=== PATIENT | female | born 1990 | race American Indian/Alaskan Native ===

== ENCOUNTER 2017-03-04 10:33 | Observation (INO) | payer MEDICAID ==
[2017-02-28 13:05] VITALS: BMI 33.4
[2017-03-04] MEDS ORDERED: Bupivacaine 0.5% Inj(30mL) IJ ONE (11:10)
[2017-03-04] MEDS ORDERED: ceFAZolin 1 GM in Sodium Chloride 0.9% 100 ML IVPB ONE (11:10)
[2017-03-04] MEDS ORDERED: Sodium Chloride 0.9% 1,000 ML IV SCH (11:15)
--- NOTE | 2017-03-04 11:24 | CP.SDSHP ---
Same Day Surgery H & P - History Proposed Procedure: Left foot subtalar joint fusion Pre-Op Diagnosis: Subtalar joint arthritis of left foot - Previous Medical/Surgical History Pain: 6.Severe Pain - Allergies Allergies: Allergies FRUITS Allergy (Uncoded 03/04/17 10:54) ITCHING - Physical Exam Mental Status: Alert & Oriented x3 - {Optional Preform as Required} Integument: WNL Ortho: Other - Impression Pt. Evaluated Today:Candidate for Anesthesia & Procedure: Yes - Date & Time Date: 03/04/17 Time: 11:25 Short Stay Discharge - Short Stay Discharge Admitting Diagnosis/Reason for Visit: M19.072 Disposition: HOME/ ROUTINE Referrals: FAMILY PROVIDER,NO [Primary Care Provider] - Rohan Long DPM [Staff Provider] - Instructions: Crutch Instructions (DC), Arthrodesis (DC), RICE Therapy (GEN), Oxycodone/Acetaminophen (By mouth), Cephalexin (By mouth) Additional Instructions (Diet, Activity): follow up with primary md 7-10 days Progress Note/Discharge Note with Instructions: Please keep dressing clean, dry, & intact to surgical site, use plastic bag over bandage for showering, wear post op shoe at all times when ambulating, call clinic if you see signs of infection (redness, swelling, malodor), please make an appointment to see in office/clinic within 1 week for post-op check.
--- NOTE | 2017-03-04 11:28 | CP.PCM.PN ---
Subjective - Date & Time of Evaluation Date of Evaluation: 03/04/17 Time of Evaluation: 11:25 - Subjective Subjective: 26 year old female patient with no pertinent PMH seen in [facility] for pre-operative evaluation of left STJ fusion surgery with Dr. Long today. Patient states that she has been having a lot of pain to the area. She has exhausted conservative treatment and now opts for surgical intervention. NPO status was confirmed. Patient is NAD and AAO x 3. Patient states that her only allergy is to fruit. She has had previous foot surgeries in the past and denies any adverse affects to the anesthesia. Patient denies using any medications. She states that she smokes an average of two black and mild cigars a day and denies drug use or alcohol consumption. Denies recent N/V/F/C/CP/SOB Objective - Medications Medications: Current Medications Cefazolin Sodium 1 gm/ Sodium (Chloride) 100 mls @ 100 mls/hr IVPB ONCE ONE Stop: 03/04/17 12:09 Sodium Chloride (Sodium Chloride 0.9%) 1,000 mls @ 0 mls/hr IV .Q0M [facility] PRN Reason: As Directed Stop: 03/05/17 11:12 - Constitutional Appears: Well, Non-toxic, No Acute Distress - Extremities Exam Additional comments: LE focused exam: Vasc: DP/PT pulses fully palpable 2/4 b/l. Skin temperature warm to warm from proximal to distal. CFT < 3 seconds to digits 1-5 b/l. No edema noted b/l. Neuro: Epicritic and protective sensation grossly intact b/l Derm: No open lesions, wounds, maceration, xerosis, abnormal growths or abnormal pigmentation noted at this time MSK: POP with passive movement of left STJ. Limited ROM of left STJ - Neurological Exam Neurological Exam: Alert, Awake, Oriented x3 - Psychiatric Exam Psychiatric exam: Normal Affect, Normal Mood Assessment and Plan - Assessment and Plan (Free Text) Assessment: 26 year old female seen in [facility] preoperatively for left foot STJ fusion Plan: Pt was seen and examined in [facility] Pt NPO status was confirmed All Pre-op testing and clearance was in the chart Pt has exhausted all conservative treatment at this time and is opting for surgical intervention Pt was explained procedure and post-operative course All pt's questions were answered to satisfaction No guarantees were made Pt understands all risks, benefits and complications of procedure Pt will follow-up with Dr. Long post operatively
[2017-03-04] MEDS ORDERED: Lactated Ringer's 1,000 ML IV ONE ×2 (11:45→15:15)
[2017-03-04] MEDS ORDERED: Ropivacaine 0.5% 30ML IV ONE (12:45)
[2017-03-04] MEDS ORDERED: Midazolam 2 MG/2 ML VIAL ONE ×2 (12:46→13:04)
[2017-03-04] MEDS ORDERED: Propofol 10 mg/ml Inj (20 ML) ONE (13:04)
[2017-03-04] MEDS ORDERED: Succinylcholine 200 mg/10 ml Inj IV ONE (13:04)
[2017-03-04] MEDS ORDERED: Rocuronium 10 mg/ml (5 ml) ONE ×2 (13:04→13:43)
[2017-03-04] MEDS ORDERED: Neostigmine Methylsulfate 3mg/3ml Syringe IV ONE (13:05)
[2017-03-04] MEDS ORDERED: Bupivacaine 0.5% 50 ML IJ ONE ×2 (13:30)
[2017-03-04] MEDS ORDERED: Esmolol 100 mg/10ml Inj IV ONE (14:35)
[2017-03-04] MEDS ORDERED: Absorbable Gelatin Sponge Size 12-7 TP ONE (15:00)
--- NOTE | 2017-03-04 16:37 | PCM.SURG1 ---
Surgeon's Initial Post Op Note - Surgeon's Notes Surgeon: Dr. Rohan Long, DPM Changer Fixer: Dr. Steven Curtis, PGY3, Dr. Luis Morales, PGY3, Dr. Carmen Chopra, PGY1 Type of Anesthesia: General Endo Anesthesia Administered By: Dr. Fajardo Pre-Operative Diagnosis: Painful left foot Subtalar joint arthritis Operative Findings: See dictation. M- 4-0 vicryl, 4-0 nylon, ceramet bone filler, 65. cannulated screw 70mm x 1, 6.5 mm cannulated screw 75mm x 1, DBM. I - 30 cc 0.5% marcaine plain Post-Operative Diagnosis: Same Operation Performed: Left foot subtalar joint arthrodesis with internal fixation with harvesting of autologous bone graft from distal tibia and bone graft filler application Specimen/Specimens Removed: Demineralized bone of left subtalar joint Estimated Blood Loss: EBL {In ML}: 10 Blood Products Given: N/A Drains Used: No Drains Post-Op Condition: Good Date of Surgery/Procedure: 03/04/17 Time of Surgery/Procedure: 16:40
[2017-03-04] MEDS ORDERED: Oxycodone/Acetaminophen 5/325 mg Tab PO PRN ×2 (16:41)
[2017-03-04] MEDS ORDERED: DiphenhydrAMINE 50 mg/ml Inj IVP PRN (16:46)
[2017-03-04] MEDS: HYDROmorphone 0.5 mg/0.5 ml ISec IVP PRN ×4 (17:25→18:19)
--- NOTE | 2017-03-04 18:32 | RAD ---
PROCEDURE: Left Foot Radiographs. HISTORY: s/p left foot surgery COMPARISON: CT examination of the left ankle and foot 08/27/2016 FINDINGS: BONES: Patient ostomy status post tibiotalar arthrodesis by 2 compression screws an apparent probable autologous bone grafting. Heterogeneous per family lucent changes at the distal tibia may reflect bone graft donor site. Cast obscures fine bony and soft-tissue detail however no definite fracture subluxation or dislocation is appreciated. JOINTS: As above. SOFT TISSUES: Limited postop changes are identified. OTHER FINDINGS: None. IMPRESSION: Status post left talocalcaneal arthrodesis by 2 compression screws and bone graft material as discussed above.
[2017-03-04] MEDS: Lactated Ringer's 1,000 ML IV SCH (20:10)
[2017-03-04] MEDS ORDERED: HYDROmorphone 0.5 mg/0.5 ml ISec IVP ONE (22:15)
[2017-03-05] MEDS: Lactated Ringer's 1,000 ML IV SCH (03:35)
[2017-03-05 08:28] VITALS: BP 96/64; PULSE 91; RESP 18; TEMP 98.1; O2SAT 96
[2017-03-05] MEDS ORDERED: Lidocaine 2% Inj (20ml) ONE (08:35)
[2017-03-05] MEDS ORDERED: Ropivacaine 0.5% 30ML IV ONE (08:35)
--- NOTE | 2017-03-05 09:17 | OP ---
PROCEDURE DATE: 03/04/2017 On behalf of Rohan Long DPM. SURGEON: Dr. Rohan Long DPM. TRIMMER HAND: Steven Curtis, PGY3, Luis Morales, PGY3, and Carmen Chopra, PGY1. AIR ANALYSIS TECHNICIAN: Dr. Fajardo. ANESTHESIA: General LMA and local. PREOPERATIVE DIAGNOSIS: Left foot subtalar joint pain with arthritis. POSTOPERATIVE DIAGNOSIS: Left foot subtalar joint pain with arthritis. PROCEDURE: 1. Left foot subtalar joint arthrodesis. 2. Harvesting autologous bone from distal tibia, left lower extremity. INDICATIONS: The patient is a 26-year-old female with above diagnosis. Patient had a left foot STJ arthroereisis surgery in the past and removed the implant after couple of years. Since then, patient has been having left foot pain. Patient has exhausted conservative treatments at this time and now requested surgical intervention. The patient signed the consent after careful explanation of the risks, benefits, complications, and alternatives for surgical procedure, no guarantees were given nor implied, 2 g of Ancef IV were given to the patient prior to the surgery, n.p.o. status was confirmed prior to taking patient to the OR. PREPARATION: The patient was brought to the operating room and placed on the operating room table in supine position, a well padded and pneumatic thigh tourniquet was placed to the patient's left lower extremity. Once general anesthesia was achieved, the left lower extremity was then prepped and draped in usual sterile manner. An Esmarch was utilized to exsanguinate the patient's left lower extremity. Pneumatic thigh tourniquet was then inflated to 350 mmHg and procedure began. PROCEDURE #1: 1. Left subtalar joint arthrodesis. Attention was directed to the distal tip of the left lateral malleolus and approximately 5 cm linear transverse incision was made distally to the calcaneocuboid joint. The incision was superior to the peroneal tendon and sural nerve. The dissection was carried through the subcutaneous tissues down to the deep fascial layer. Care was taken to identify and retract all vital neurovascular structures. All bleeders were cauterized and ligated as necessary. After the subcutaneous tissue was dissected, linear periosteal incision was made. At this time, lots of scar tissues were noticed and removed with #15 blade. Next with intraoperative fluoroscopy, posterior facet of subtalar joint was confirmed. There was a deficit in the anterior aspect of the talus and it was connected to the sinus tarsi. Utilizing an osteotome and mallet, subtalar joint was opened up and was distracted with a lamina canvas shop laborer. All the cartilage from inferior aspect of the talus and superior aspect of the calcaneus were removed with curette. Next, utilizing rongeur, all the scar tissues were removed from anterior aspect of the talus. Once the cartilages were removed, subcondylar bone plate was fenestrated with utilizing size 2.0 mm drill bit. This will aid osseous ingrowth by opening of vascular channels across the fusion site. At this time, approximately 10 mL of autologous bone graft from distal tibia (procedure #2) was applied to the fusion site between talus and calcaneus. Next, Utilizing #15 blade and made a 3 cm linear incision and two Synthes 6.5 mm partially threaded cannulated screws were inserted from calcaneus into the talus and the screws were measured as 70 mm and 75 mm. The screw insertion was performed under the intraoperative fluoroscopy. Utilizing 3 mL of Amalia [employer] bone void filler was used to the deficit area at anterior aspect of the talus. Correction of the deformity was assessed at this time and noted to be excellent. The deep tissue was reapproximated with #3-0 Vicryl and subcutaneous tissue was reapproximated with #4-0 Vicryl and skin was reapproximated with #4-0 nylon. PROCEDURE #2: Harvesting autologous bone graft from left lower extremity distal tibia. Attention was directed to the medial distal aspect of the left tibia utilizing #15 blade, 2 cm linear longitudinal incision was made. The incision was deepened through the subcutaneous tissue using sharp and blunt dissection. Care was taken to identify and retract all vital neurovascular structures. All bleeders were cauterized and ligated as necessary. Linear periosteal incision was made with #15 blade. Next, utilizing [employer] It Program Manager bone creator, small cortical bone window was made and utilizing NXEtus bone harvester approximately 10 mL of cancellous bone was harvested from the distal tibia. The site was irrigated with copious amount of normal sterile saline. The distal tibia donor site was packed with Biomet StaGraft DBM plus and applied the Gelfoam at the window. Deep tissue was reapproximated with #3-0 Vicryl and skin was reapproximated with #4-0 nylon. Left lower extremity was infiltrated with 30 mL of 0.5% Marcaine. Left foot was dressed with Betadine soaked Adaptic, 4 x 4s and Kerlix and bivalved below knee cast was applied to the left lower extremity. The attending was present during the case. POSTOPERATIVE CONDITION: The patient tolerated anesthesia and procedure well and was escorted to the recovery room with vital signs stable and neurovascular status intact with the left lower extremity. This patient will follow with Dr. Long at [facility] Podiatry clinic. Steven Curtis DPM [email or web address]
--- NOTE | 2017-03-05 09:44 | PCM.ANESB2 ---
Popliteal Nerve Block - Popliteal Nerve Block Date of Procedure: 03/05/17 Anesthesiologist: Genaro Pre-Procedure Diagnosis: Left post-op pain Post-Procedure Diagnosis: Same Procedure Performed: Popliteal Nerve Block Left - Procedure Popliteal Nerve Block: This procedure was explained to the patient that it is for post-operative pain management. Consent was obtained after a thorough discussion with the patient regarding the benefits and possible complications of local anesthetic block of the sciatic nerve at the popliteal level. The patient was placed in right lateral decub position. Time-out was held with the circulating nurse to confirm the correct surgery and the appropriate block. Patient's operative leg was gently raised and supported and the groove in between the biceps femoris and vastus lateralis muscles was carefully palpated. The skin approximately 8cm above the popliteal crease was then marked. The ultrasound transducer was then applied to the posterior thigh approximately 8cm above the popliteal crease in the transverse plane and the sciatic nerve before its division was visualized lateral to the popliteal artery and in between the bicep femoris and semimembranosus/semitendinosus muscles. After identification, the lateral portion of the thigh was prepped with Betadine solution three times and Lidocaine 1% was injected subcutaneously for topical anesthesia. At this point, a # 21 gauge Stimuplex insulated 4 inch needle was inserted into pre-marked area and advanced in a perpendicular direction. The needle was inserted above the ultrasound transducer in-plane towards the sciatic nerve in a [id number] direction. Needle advancement was performed carefully under direct ultrasound visualization. Nerve stimulator was used and dorsiflexion of the __left___ foot was elicited at a current of __0.4___ MA. After repeated negative aspiration, ___10__cc of __2___ % ____lidocaine was injected and this was flowed with ___20___ cc of ___.5___% ___ropivacaine __. Under ultrasound guidance the local anesthetics were observed tenting the epidural sheath and surrounding the roots of the sciatic nerve. The needle was removed intact and sterile dressing was applied. The patient tolerated the popliteal nerve block well with stable vital signs.
--- NOTE | 2017-03-05 10:08 | CP.PCM.PN ---
Subjective - Date & Time of Evaluation Date of Evaluation: 03/05/17 Time of Evaluation: 10:05 - Subjective Subjective: 26 y/o female seen at bedside resting comfortably 1 day s/p left foot subtalar joint arthrodesis. Patient states she has been in pain since the surgery yesterday but that the medications are helping to minimize it. Patient was feeling disoriented yesterday following the anesthesia and stayed in house for observation overnight. Patient has voided and eaten since the surgery. Patient has kept cast clean, dry and intact and is ambulating with crutches without any weightbearing to the left lower extremity. Patient denies any F/C/N/V/SOB. Patient states she is ready to leave today and will have her father come and pick her up once we clear her to go home. Patient admits to still feeling drowsy but feels more alert than yesterday. Objective - Vital Signs/Intake and Output Vital Signs (last 24 hours): Temp Pulse Resp BP Pulse Ox 98.1 F 91 H 18 96/64 L 96 03/05/17 08:28 03/05/17 08:28 03/05/17 08:28 03/05/17 08:28 03/05/17 08:28 Intake and Output: 03/05/17 03/05/17 06:59 18:59 Output Total 275 Balance -275 - Medications Medications: Current Medications Acetaminophen (Tylenol 325mg Tab) 650 mg PO Q4 PRN PRN Reason: Pain, Mild (1-3) Sodium Chloride (Sodium Chloride 0.9%) 1,000 mls @ 0 mls/hr IV .Q0M [facility] PRN Reason: As Directed Stop: 03/05/17 11:12 Lactated Ringer's (Lactated Ringer's) 1,000 mls @ 100 mls/hr IV .Q10H [facility] Last Admin: 03/05/17 03:35 Dose: Not Given Oxycodone/Acetaminophen (Percocet 5/325 Mg Tab) 1 tab PO Q4 PRN PRN Reason: Pain, moderate (4-7) Stop: 03/07/17 16:42 Oxycodone/Acetaminophen (Percocet 5/325 Mg Tab) 2 tab PO Q4 PRN PRN Reason: Pain, severe (8-10) Stop: 03/07/17 16:42 Last Admin: 03/05/17 03:29 Dose: 2 tab - Constitutional Appears: Well, Non-toxic, No Acute Distress - Extremities Exam Additional comments: Bivalved cast with NING to left lower extremity is clean, dry and intact with no signs of weightbearing - Neurological Exam Neurological Exam: Alert, Awake, Oriented x3 - Psychiatric Exam Psychiatric exam: Normal Affect, Normal Mood Assessment and Plan - Assessment and Plan (Free Text) Assessment: 26 y/o female 1 day s/p left foot subtalar joint arthrodesis with harvested tibial bone graft Plan: Patient seen and evaluated at bedside Discussed plan in detail with Dr. Long Pt given stat dose of Dilaudid at midnight last night and pain has since been managed with PO Percocet Consult placed for Dr. Lam for pain management and possible popliteal block to LLE - pain management appreciated Patient to be discharged following pain management visit and once she is less drowsy Patient will be sent home on PO Keflex and Percocet Patient to follow up in [facility] podiatry clinic next week
== END 2017-03-05 16:00 | disposition home or self-care (01) ==
LOC: H.OPSURG 10:33 → H.EROBSV 20:44 → H.MEDSURG1 22:03
PROVIDERS: ADMIT Family Medicine; ATTEND Podiatrist Foot & Ankle Surgery
DX: M19.072 Primary osteoarthritis, left ankle and foot (principal); Z91.018 Allergy to other foods; F17.290 Nicotine dependence, other tobacco product, uncomplicated
CPT/HCPCS: 28725; 73630; 88304; 96374; 96376; 97161; 97164; C1713; C1769; G0378; G8978; G8979; G8980; J0330; J0690; J1170; J2001; J2250; J2405; J2704; J2710; J3010; J7120